=== PATIENT | male | born 1970 | race Caucasian/White ===

== ENCOUNTER 2017-04-03 15:00 | Emergency (ER) | payer SELFPAY ==
[~2017-04-03] VITALS: Ht 185.4 cm; Wt 72.7 kg
[~2017-04-03 15:00] MED LIST: DICL50TA2 PO; NAPR550 PO; PERC10TA27 PO; ROBA750T3 PO
[2017-04-03 15:02] VITALS: BP 137/98; PULSE 80; RESP 18; TEMP 99.3; O2SAT 97
[2017-04-03] MEDS ORDERED: ORPHENADRINE INJ 60 MG/2 ML AMP IM ONE (17:30)
[2017-04-03] MEDS ORDERED: KETOROLAC TROMETHAMINE 60 MG/2 ML (IM) VIAL IM ONE (17:30)
[2017-04-03] MEDS ORDERED: ROBA500T PO (17:41)
[2017-04-03] MEDS ORDERED: NAPR500T2 PO (17:41)
--- NOTE | 2017-04-03 17:42 | PD ---
HPI . Neck pain Chief Complaint: Back/ Neck Pain or Injury Time Seen by Provider: 17:17 Travel History International Travel<30 days: No Contact w/Intl Traveler<30days: No Traveled to known affect area: No History of Present Illness HPI 46 year old male patient presents to the emergency department for evaluation of left lateral neck pain after moving a heavy table and twisting his neck in an awkward position while carrying the table. Patient denies any other injuries, traumas or falls. Patient denies any fevers, chills, malaise, nausea, vomiting, diarrhea, paraesthesias. No midline spinal tenderness. Patient has no major medical history and does not take any daily medication. PFSH Social History Alcohol Use: Yes (OCASSIONAL ) Tobacco Use: Yes (ECIG) Substance Use: No Allergies-Medications (Allergen,Severity, Reaction): Coded Allergies: penicillin G (Unverified Allergy, Severe, Rash, 04/03/17) Reported Meds & Prescriptions Reported Meds & Active Scripts Active Review of Systems Except as stated in HPI: all other systems reviewed are Neg Physical Exam Narrative GENERAL: Well-nourished, well-developed 46-year-old male patient in no acute distress. Nontoxic appearing. SKIN: Focused skin assessment warm/dry. HEAD: Normocephalic. Atraumatic. EYES: No scleral icterus. No injection or drainage. NECK: Supple, trachea midline. No JVD or lymphadenopathy. CARDIOVASCULAR: Regular rate and rhythm without murmurs, gallops, or rubs. RESPIRATORY: Breath sounds equal bilaterally. No accessory muscle use. GASTROINTESTINAL: Abdomen soft, non-tender, nondistended. MUSCULOSKELETAL: Full range of motion noted to the bilateral upper and lower extremities. No obvious deformity, ecchymosis, erythema, cyanosis, or edema. BACK: Left lateral neck tenderness that radiates down the paraspinal muscles in the upper back. No midline spinal tenderness, obvious deformity, ecchymosis, erythema or edema. No CVA tenderness. Data Data Last Documented VS Vital Signs Date Time Temp Pulse Resp B/P (MAP) Pulse Ox O2 Delivery O2 Flow Rate FiO2 04/03/17 15:02 99.3 80 18 137/98 (111) 97 Room Air Orders Orders Ketorolac Inj (Toradol Inj) (04/03/17 17:30) Orphenadrine Inj (Norflex Inj) (04/03/17 17:30) [facility] Medical Decision Making Medical Screen Exam Complete: Yes Emergency Medical Condition: Yes Differential Diagnosis Differential diagnoses include but not limited to muscle sprain, muscle strain, muscle spasm Narrative Course 46-year-old male patient presents emergency department for evaluation of left lateral neck spasm after lifting a heavy table. Patient given an IM injection of Toradol and Norflex and discharged home with a prescription for Robaxin and naproxen. Patient stable for discharge and discharged home at this time. Diagnosis Primary Impression: Neck muscle spasm Referrals: Primary Care Physician Patient Instructions: General Instructions, Neck Pain (DC) Additional Instructions: Please return to emergency department if your symptoms return or worsen. Follow up with your primary care provider. Take medications as prescribed. May use heating pads or ice packs as needed for pain management. Med/Other Pt SpecificInfo: Prescription(s) given Scripts Naproxen (Naproxen) 500 Mg Tab 500 MG PO BID for 5 Days, #10 TAB 0 Refills Prov: Bruna Hughes 04/03/17 Methocarbamol (Robaxin) 500 Mg Tab 500 MG PO TID for Muscle Spasm for 5 Days, TAB 0 Refills Prov: Bruna Hughes 04/03/17 Disposition: 01 DISCHARGE HOME Condition: Stable Bruna Hughes Apr 03, 2017 17:42
== END 2017-04-03 18:13 | disposition home or self-care (01) ==
LOC: NEPK 15:00
DX: M62.838 Other muscle spasm (principal); F17.290 Nicotine dependence, other tobacco product, uncomplicated; Z88.0 Allergy status to penicillin
CPT/HCPCS: 96372; 99284; J1885; J2360

== ENCOUNTER 2017-04-08 16:41 | Emergency (ER) | payer SELFPAY ==
[~2017-04-08] VITALS: Ht 185.4 cm; Wt 72.0 kg
[~2017-04-08 16:41] MED LIST changes: -DICL50TA2 PO; +NAPR500T2 PO; -NAPR550 PO; -PERC10TA27 PO; +ROBA500T PO; -ROBA750T3 PO
[2017-04-08 17:04] VITALS: BP 165/96; PULSE 85; RESP 16; TEMP 99.4; O2SAT 96
[2017-04-08] MEDS ORDERED: CLIN300C5 PO (17:44)
[2017-04-08] MEDS ORDERED: NORC5TAB PO (17:44)
--- NOTE | 2017-04-08 17:57 | PD ---
HPI . Mouth pain Chief Complaint: Oral / Dental Pain or Problem Time Seen by Provider: 17:39 Travel History International Travel<30 days: No Contact w/Intl Traveler<30days: No Traveled to known affect area: No History of Present Illness HPI Patient presents with a chief complaint of pain in the roof of the mouth. Onset was 4 days ago. It is associated with swelling. It is getting progressively worse. No modifying factors. Pain is rated 10/10. PFSH Past Medical History Influenza Vaccination: No Social History Alcohol Use: No Tobacco Use: Yes (ONE PPD) Substance Use: No Allergies-Medications (Allergen,Severity, Reaction): Coded Allergies: penicillin G (Unverified Allergy, Severe, Rash, 04/08/17) Reported Meds & Prescriptions Reported Meds & Active Scripts Active Tomales (Hydrocodone-Acetaminophen) 5 Mg-325 Mg Tab 1 Tab PO Q4H PRN Clindamycin (Clindamycin HCl) 300 Mg Cap 300 Mg PO TID Review of Systems Except as stated in HPI: all other systems reviewed are Neg HENT: Positive: Other (mouth pain and swelling) Physical Exam Narrative GENERAL: Awake and alert. He is grimacing. SKIN: Warm and dry. HEAD: Normocephalic/atraumatic. EYES: Pupils are equal. Extraocular movements are intact. ENT: He has got a mass on the roof of his mouth which is about the size of a dime. There is central fluctuance. NECK: Normal range of motion. No cervical lymphadenopathy. CARDIOVASCULAR: Regular rate and rhythm. RESPIRATORY: Nonlabored respirations. ABDOMEN: : MUSCULOSKELETAL: Atraumatic. NEUROLOGICAL: Nonfocal. PSYCHIATRIC: Appropriate mood and affect. Data Data Last Documented VS Vital Signs Date Time Temp Pulse Resp B/P (MAP) Pulse Ox O2 Delivery O2 Flow Rate FiO2 04/08/17 17:04 99.4 85 16 165/96 (119) 96 Orders Orders Ed Discharge Order (04/08/17 17:44) MDM Medical Decision Making Medical Screen Exam Complete: Yes Emergency Medical Condition: Yes Differential Diagnosis My differential diagnosis closed but is not limited to abscess, cyst, lipoma Narrative Course This patient presents with swelling on the roof of the mouth. Exam showed fluctuance. He will be discharged on clindamycin and Tomales. I have instructed him to do warm salt water swishes several times a day. Procedures Procedure Narrative INCISION AND DRAINAGE OF ABSCESS: An 18-gauge needle was used to make a small incision across the area of the abscess. The abscess drained. Diagnosis Primary Impression: Oral abscess Patient Instructions: General Instructions, Abscess Incision and Drainage (GEN) Departure Forms: Tests/Procedures Scripts Hydrocodone-Acetaminophen (Tomales) 5 Mg-325 Mg Tab 1 TAB PO Q4H Y for PAIN, #12 TAB 0 Refills Prov: Kiara Barber MD 04/08/17 Clindamycin (Clindamycin) 300 Mg Cap 300 MG PO TID for Infection, #21 CAP 0 Refills Prov: Kiara Barber MD 04/08/17 Disposition: 01 DISCHARGE HOME Condition: Stable Kiara Barber MD Apr 08, 2017 17:57
== END 2017-04-08 18:17 | disposition home or self-care (01) ==
LOC: PHEFT 16:41
DX: K12.2 Cellulitis and abscess of mouth (principal); F17.200 Nicotine dependence, unspecified, uncomplicated
CPT/HCPCS: 41800